=== PATIENT | male | born 1965 | race Caucasian/White ===

== ENCOUNTER 2021-11-28 11:30 | Inpatient (IN) | payer OTHER ==
[2021-11-28 13:08] VITALS: BMI 26.5
[2021-11-28] MEDS ORDERED: ONDANSETRON *ODT* 4 MG TABLET SL PRN (14:14)
[2021-11-28] MEDS ORDERED: MAGNESIUM CITRATE 300 ML BOTTLE PO PRN (14:14)
[2021-11-28] MEDS ORDERED: NICOTINE 10 MG CARTRIDGE (INHALER) IH PRN (14:14)
[2021-11-28] MEDS ORDERED: BISMUTH SUBSALICYLATE 524 MG/30 ML PO PRN (14:14)
[2021-11-28] MEDS ORDERED: LOPERAMIDE HCL 2 MG CAPSULE PO PRN (14:14)
[2021-11-28] MEDS ORDERED: MAGNESIUM HYDROX 2400MG/30ML ORAL SUSPENSION 30 ML CUP PO PRN (14:14)
[2021-11-28] MEDS ORDERED: ACETAMINOPHEN 325 MG TABLET (FP) PO PRN ×2 (14:14)
[2021-11-28] MEDS ORDERED: MAG HYDROX/AL HYDROX/SIMETH 30 ML UNIT-DOSE CUP PO PRN (14:14)
[2021-11-28] MEDS ORDERED: IBUPROFEN 400 MG TABLET (FP) PO PRN (14:14)
[2021-11-28] MEDS ORDERED: MENTHOL/PHENOL 1 EACH UD MM PRN (14:14)
[2021-11-28] MEDS ORDERED: cloNIDine HCL 0.1 MG TABLET PO PRN (14:14)
[2021-11-28] MEDS: hydrOXYzine PAMOATE 25 MG CAPSULE (FP) PO SCH ×2 (18:37→23:13)
[2021-11-28] MEDS: methaDONE HCL 10 MG TABLET (FOR DETOX USE ONLY) PO ONE ×2 (18:40→20:07)
[2021-11-28] MEDS ORDERED: methaDONE HCL 10 MG TABLET (FOR DETOX USE ONLY) PO ONE (18:45)
[2021-11-28] MEDS: MELATONIN 5 MG TABLETS PO SCH (23:11)
[2021-11-28] MEDS: THIAMINE HCL 100 MG TABLET (FP) PO SCH (23:13)
[2021-11-29] MEDS: hydrOXYzine PAMOATE 25 MG CAPSULE (FP) PO SCH ×5 (06:51→22:21)
[2021-11-29] MEDS ORDERED: methaDONE HCL 10 MG TABLET (FOR DETOX USE ONLY) ONE (09:17)
[2021-11-29] MEDS: PRENATAL VITAMINS W/ FOLIC ACID TABLET (FP) PO SCH (10:43)
[2021-11-29 11:27] LABS: CALCIUM 8.7 mg/dL (8.5-10.1)
[2021-11-29 11:28] LABS: BLOOD UREA NITROGEN 13.3 mg/dL (7-18)
[2021-11-29 11:31] LABS: CREATININE 0.8 mg/dL (0.55-1.3)
[2021-11-29 11:33] LABS: BILIRUBIN,TOTAL 0.8 mg/dL (0.2-1); TOT PROT 7.2 g/dl (6.4-8.2)
[2021-11-29] MEDS: MELATONIN 5 MG TABLETS PO SCH (22:21)
[2021-11-29] MEDS: THIAMINE HCL 100 MG TABLET (FP) PO SCH (22:21)
[2021-11-29] MEDS: METHOCARBAMOL 500 MG TABLET PO PRN (22:21)
[2021-11-30] MEDS: hydrOXYzine PAMOATE 25 MG CAPSULE (FP) PO SCH ×5 (05:41→22:27)
[2021-11-30] MEDS ORDERED: methaDONE HCL 10 MG TABLET (FOR DETOX USE ONLY) PO ONE (10:00)
[2021-11-30] MEDS: diazePAM 5 MG TABLET PO PRN ×2 (10:24→22:26)
[2021-11-30] MEDS: PRENATAL VITAMINS W/ FOLIC ACID TABLET (FP) PO SCH (10:25)
[2021-11-30 10:39] LABS: SARS-CoV-2 NAA Not Detected
[2021-11-30 11:55] LABS: HEMATOCRIT 42.2 % (35.4-49); HEMOGLOBIN 13.4 GM/dL (11.7-16.9); MCH 26.5 pg (25.7-33.7); MCHC 31.8 g/dl (32.0-35.9); MEAN CELL VOLUME 83.4 fl (80-96); MEAN PLT VOLUME 8.7 fl (7.5-11.1); PLATELET COUNT 289 10^3/uL (134-434); RBC 5.06 M/mm3 (4.00-5.60); RDW 14.7 % (11.9-15.9); WHITE BLOOD COUNT 9.1 K/mm3 (4.0-10.0)
[2021-11-30 12:06] LABS: GLUCOSE,FASTING 77 mg/dL (74-106)
[2021-11-30 12:09] LABS: SGOT/AST 225 U/L (15-37); SGPT/ALT 256 U/L (13-61)
[2021-11-30] MEDS ORDERED: PENICILLIN G BENZATHINE 2,400,000 UNIT/4 ML PFS IM ONE (14:57)
[2021-11-30] MEDS: THIAMINE HCL 100 MG TABLET (FP) PO SCH (22:27)
[2021-11-30] MEDS: MELATONIN 5 MG TABLETS PO SCH (22:27)
[2021-12-01] MEDS: hydrOXYzine PAMOATE 25 MG CAPSULE (FP) PO SCH ×5 (05:54→23:55)
[2021-12-01] MEDS ORDERED: methaDONE HCL 10 MG TABLET (FOR DETOX USE ONLY) ONE (09:28)
[2021-12-01] MEDS: PRENATAL VITAMINS W/ FOLIC ACID TABLET (FP) PO SCH (11:17)
[2021-12-01] MEDS: MELATONIN 5 MG TABLETS PO SCH (23:54)
[2021-12-01] MEDS: THIAMINE HCL 100 MG TABLET (FP) PO SCH (23:55)
[2021-12-02] MEDS: hydrOXYzine PAMOATE 25 MG CAPSULE (FP) PO SCH ×5 (06:36→22:30)
[2021-12-02] MEDS ORDERED: methaDONE HCL 10 MG TABLET (FOR DETOX USE ONLY) PO ONE (10:00)
[2021-12-02] MEDS: PRENATAL VITAMINS W/ FOLIC ACID TABLET (FP) PO SCH (11:13)
[2021-12-02] MEDS: MELATONIN 5 MG TABLETS PO SCH (22:30)
[2021-12-02] MEDS: THIAMINE HCL 100 MG TABLET (FP) PO SCH (22:30)
[2021-12-02] MEDS: METHOCARBAMOL 500 MG TABLET PO PRN (22:31)
[2021-12-02] MEDS: diazePAM 5 MG TABLET PO PRN (22:32)
[2021-12-03] MEDS: hydrOXYzine PAMOATE 25 MG CAPSULE (FP) PO SCH (06:14)
[2021-12-03] MEDS: diazePAM 5 MG TABLET PO PRN (06:15)
[2021-12-03 09:31] VITALS: BP 123/73; PULSE 84; TEMP 97.5
== END 2021-12-03 09:51 | disposition other institution (70) | DRG 773 ==
LOC: YASAS 11:30 → Y3N 15:33
PROVIDERS: ADMIT Allergy & Immunology; ATTEND Allergy & Immunology
PROC: HZ2ZZZZ Detoxification Services for Substance Abuse Treatment (ICD-10-PCS; principal; 2021-11-28)
DX: F11.23 Opioid dependence with withdrawal (principal); F14.20 Cocaine dependence, uncomplicated; F17.210 Nicotine dependence, cigarettes, uncomplicated; E88.09 Other disorders of plasma-protein metabolism, not elsewhere classified; A53.0 Latent syphilis, unspecified as early or late; I10 Essential (primary) hypertension; M25.562 Pain in left knee; M25.561 Pain in right knee; R26.89 Other abnormalities of gait and mobility; R74.01 Elevation of levels of liver transaminase levels; R73.9 Hyperglycemia, unspecified; Z86.59 Personal history of other mental and behavioral disorders; Z86.19 Personal history of other infectious and parasitic diseases
CPT/HCPCS: 36415; 80053; 82947; 83036; 84450; 84460; 85027; 86593; 86780; 93005; 93010; C9803; U0003; U0005